=== PATIENT | male | born 1960 | race Caucasian/White ===

== ENCOUNTER → 2017-02-13 | Outpatient (CLI) | payer MEDICAID ==
[2015-05-10 14:01] VITALS: BP 120/75
[2017-02-13 14:08] LABS: CREATININE 1.69 mg/dL (0.70-1.30)
--- NOTE | 2017-02-14 08:31 | MRI ---
HISTORY: Brachial plexopathy, left arm numbness and tingling Study: MRI cervical spine with tracheal plexus protocol Comparison: None Technique: Multiplanar multisequence MRI of the cervical spine was obtained utilizing brachium plexu s protocol including coronal T1 and STIR weighted sequences. Findings: Alignment of the cervical spine is within normal limits. No abnormal cord or marrow signal is identi fied. Vertebral body heights are preserved. There is multilevel spondylosis and disc desiccation. Wi th respect to the cervical nerve roots and bilateral brachial plexuses there is no evidence of mass or nerve inflammation. There is no edema or evidence of denervation injury to the surrounding muscle s. Incidental note is made of right-sided pleural effusion that is partially visualized. No destruct umair osseous lesion or soft tissue masses. No adenopathy is identified. C2 -- C3: No significant stenosis identified. C3 -- C4: Mild bilateral uncovertebral spurring without significant stenosis identified. C4 -- C5: There is bilateral uncovertebral spurring resulting in moderate bilateral foraminal narrow ing. C5 -- C6: There is a large disc osteophyte complex, bilateral uncovertebral spurring and facet arthr opathy resulting in severe bilateral neuroforaminal encroachment and mild spinal canal stenosis. The re is posterior displacement of the spinal cord without cord edema or thinning. C6 -- C7: No significant spinal or foraminal stenosis. C7 -- T1: No significant spinal or foraminal stenosis. IMPRESSION: 1. Severe bilateral neuroforaminal stenosis and mild spinal canal stenosis with posterior displaceme nt of the spinal cord at C5-C6 due to a large disc osteophyte complex, bilateral uncovertebral spurr ing and facet arthropathy. 2. Moderate bilateral foraminal narrowing at C4-C5 due to uncovertebral osteophytes. 3. With respect to the brachial plexuses is there is no evidence of mass or nerve inflammation. No s econdary signs of denervation. 4. Incidentally noted there is a right-sided pleural effusion that is partially visualized. PA and l ateral chest radiographs may be beneficial further evaluate. Reported By:
== END ==
LOC: RAD 13:27
PROVIDERS: ATTEND Psychiatry & Neurology Neurology
DX: G54.0 Brachial plexus disorders (principal); M54.12 Radiculopathy, cervical region
CPT/HCPCS: 36415; 72141; 82565; 84520